=== PATIENT | male | born 1930 | race Two or more races ===

== ENCOUNTER 2018-10-09 13:32 | Emergency (ER) | payer OTHER, BC ==
[~2018-10-09] VITALS: Ht 175.3 cm; Wt 87.1 kg
[~2018-10-09 13:32] MED LIST: ALLOPURINOL300 MG PO; AVELOX ABC PAC400 MG PO; CLARINEX5 MG/TAB PO; COLCHICINE0.6 MG PO; ENTERIC ASPIRIN81 MG PO; LISINOPRIL2.5 MG PO; NAPROXEN500 MG PO; OMEPRAZOLE20 MG PO; PREDNISOLONE5 MG PO; PREDNISONE20 MG PO; SOTALOL80 MG PO; TENORMIN50 MG PO; ZOCOR20 MG PO
[2018-10-10] MEDS ORDERED: ZYNCOF 20-400120 ML PO (02:50)
[2018-10-10] MEDS ORDERED: PEPCID40 MG PO (02:50)
[2018-10-10] MEDS ORDERED: LEVSIN/SL0.125 MG SL (02:50)
[2018-10-10] MEDS ORDERED: ZOFRAN ODT4 MG PO (02:50)
[2018-10-10] MEDS ORDERED: OSEL75CA PO (02:50)
== END 2018-10-10 03:05 | disposition home or self-care (01) ==
LOC: ER 13:32
DX: J09.X2 Influenza due to identified novel influenza A virus with other respiratory manifestations (principal); B34.9 Viral infection, unspecified; R06.02 Shortness of breath; R10.13 Epigastric pain

== ENCOUNTER 2019-09-29 09:08 | Emergency (ER) | payer OTHER, BC ==
[~2019-09-29] VITALS: Ht 175.3 cm; Wt 77.1 kg
[~2019-09-29 09:08] MED LIST changes: +LEVSIN/SL0.125 MG SL; +OSEL75CA PO; +PEPCID40 MG PO; +ZOFRAN ODT4 MG PO; +ZYNCOF 20-400120 ML PO
[2019-09-29] MEDS ORDERED: ELIQUIS2.5 MG PO (09:37)
[2019-09-29] MEDS ORDERED: METOLAZONE2.5 MG PO (09:38)
[2019-09-29] MEDS ORDERED: ATORVASTATIN CA10 MG PO (09:39)
[2019-09-29] MEDS ORDERED: MUCINEX1200 MG PO (09:40)
== END 2019-09-29 14:14 | disposition home or self-care (01) ==
LOC: ER 09:08
DX: J06.9 Acute upper respiratory infection, unspecified (principal)